=== PATIENT | female | born 1980 | race Caucasian/White ===

== ENCOUNTER 2019-07-01 17:29 | Emergency (ER) | payer MEDICARE ==
[~2019-07-01] VITALS: Ht 160 cm; Wt 97.5 kg
[~2019-07-01 17:29] MED LIST: ADIPEX-P37.5 M1; AUGMENTIN 875-1 EACH PO; DESYREL50 MG PO; DIFLUCAN150 MG PO; GABAPENTIN 100100 MG PO; HYDROCHLOROTHIA25 M1 PO; IBUPROFEN 800800 M1 PO; LIPITOR80 MG PO; LISINOPRIL20 MG PO; MULTIVITAMINS; NORCO 5-325 TA1 EACH PO; PERCOCET 5-3251 EACH PO; PRAVACHOL40 MG PO; PROTONIX40 M1; SYNTHROID175 MCG; TOPAMAX 25 MG T25 M1 PO; TUSSIONEX PENN473 ML PO; VALIUM5 MG PO; WELLBUTRIN XL300 M2 PO; XANAX 0.5 MG0.5 MG; ZETIA10 MG; ZOFRAN ODT4 MG PO
[2019-07-01] MEDS ORDERED: LIPITOR40 MG PO (17:55)
[2019-07-01 18:07] LABS: URINE BILIRUBIN NEGATIVE (Negative); URINE BLOOD TRACE (Negative); URINE CLARITY CLEAR; URINE COLOR STRAW; URINE GLUCOSE-RANDOM NEGATIVE (Negative); URINE KETONES NEGATIVE (Negative); URINE LEUKOCYTES-REFLEX 1+ (Negative); URINE NITRITE-REFLEX NEGATIVE (Negative); URINE PROTEIN NEGATIVE (Negative); URINE UROBILINOGEN 0.2 E.U./dl (0.2-1.0)
[2019-07-01 18:13] LABS: SQUAMOUS >10 Many /LPF (0-3)
[2019-07-01 18:14] LABS: URINE WBC-REFLEX 0-5 Rare /HPF (0-5)
[2019-07-01 18:15] LABS: CASTS None Seen /LPF (None Seen); CRYSTALS None Seen /LPF (None Seen); MUCUS None Seen strn/LPF (None Seen); URINE RBC 0-2 Rare /HPF (0-2)
[2019-07-01] MEDS ORDERED: DOXYCYCLINE MO100 M1 PO (18:36)
[2019-07-01 19:24] VITALS: BP 159/97
== END 2019-07-01 19:26 | disposition home or self-care (01) ==
LOC: M.ERS 17:29
PROVIDERS: Physician Assistant
DX: N72 Inflammatory disease of cervix uteri (principal); I10 Essential (primary) hypertension; F32.9 Major depressive disorder, single episode, unspecified; F41.9 Anxiety disorder, unspecified; F17.210 Nicotine dependence, cigarettes, uncomplicated; Z86.2 Personal history of diseases of the blood and blood-forming organs and certain disorders involving the immune mechanism; Z90.89 Acquired absence of other organs; Z98.890 Other specified postprocedural states

== ENCOUNTER 2020-02-05 18:54 | Emergency (ER) | payer MEDICARE ==
[~2020-02-05] VITALS: Ht 154.9 cm; Wt 111.1 kg
[~2020-02-05 18:54] MED LIST changes: +DOXYCYCLINE MO100 M1 PO; +LIPITOR40 MG PO
[2020-02-05] MEDS ORDERED: TOPROL XL50 MG PO (19:13)
[2020-02-05] MEDS ORDERED: CYTOMEL50 MCG PO (19:13)
[2020-02-05 19:29] LABS: INFLUENZA A ANTIGEN Negative (Negative); INFLUENZA B ANTIGEN Negative (Negative)
[2020-02-05 20:13] LABS: ABSOLUTE BASOPHILS 0.1 thou/uL (0.0-0.2); ABSOLUTE EOSINOPHILS 0.4 thou/uL (0.0-0.7); ABSOLUTE LYMPHOCYTES 2.3 thou/uL (0.8-5.3); ABSOLUTE MONOCYTES 0.5 thou/uL (0.0-1.2); ABSOLUTE NEUTROPHILS 5.7 thou/uL (1.6-8.1); BASOPHILS 1.4 %; EOSINOPHILS 4.3 %; HEMATOCRIT 41.5 % (37.0-47.0); LYMPHOCYTES 25.1 %; MCH 30.6 pg (26.0-34.0); MCHC 33.7 g/dL (28.0-37.0); MCV 90.8 fL (80.0-100.0); NUCLEATED RBCS 0 /100WBC; PLATELET COUNT* 307 thou/uL (150-400); POLYS 63.2 %; RBC 4.57 mil/uL (4.20-5.00); RDW-CV 13.8 % (10.5-14.5)
[2020-02-05 20:23] LABS: CALCIUM 9.4 mg/dL (8.5-10.1); CREATININE 0.9 mg/dL (0.6-1.3)
[2020-02-05 20:33] LABS: ALBUMIN 3.1 g/dL (3.4-5.0); TOTAL BILIRUBIN 0.1 mg/dL (<0.1-1.0); TOTAL PROTEIN 6.7 g/dL (6.4-8.2)
[2020-02-05] MEDS ORDERED: VIRTUSSIN AC L118 ML PO (22:04)
[2020-02-05] MEDS ORDERED: ZPAK PO (22:04)
[2020-02-05 22:23] VITALS: BP 141/86
--- NOTE | 2020-02-06 09:37 | EKG ---
[place] [address] ELECTROCARDIOGRAM REPORT Name: LUCINDA JONES Room: [facility]#: [id number] Admission: 02/05/20 Attend Phys: Discharge: 02/05/20 Date of : 76 Date of Service: 02/05/202006 Report #: [id number] THIS REPORT FOR: //name// [facility] ED Test Date: 2020-02-05 Test Time: 20:07:39 Pat Name: LUCINDA JONES Department: Room: Gender: F Package Sealer: : 1980 Requested By: Steff sEcobedo Order Number: [id number] MD: Darell Cox Measurements Intervals [place] Rate: 69 P: 50 AR: 159 QRS: 72 QRSD: 93 T: 22 QT: 386 QTc: 414 Interpretive Statements Sinus rhythm No previous ECG available for comparison Electronically Signed On 02-06-2020 9:35:48 CDT by Darell Cox [email or web address] <ELECTRONICALLY SIGNED> By: Darell Cox MD, [facility] 02/06/20 0935 06 06 Darell Cox MD, FACC /EPI
== END 2020-02-05 22:25 | disposition home or self-care (01) ==
LOC: M.ERS 18:54
PROVIDERS: Nurse Practitioner Family; Physician Assistant
DX: J22 Unspecified acute lower respiratory infection (principal); I10 Essential (primary) hypertension; F17.210 Nicotine dependence, cigarettes, uncomplicated; Z86.2 Personal history of diseases of the blood and blood-forming organs and certain disorders involving the immune mechanism

== ENCOUNTER 2020-03-30 12:32 | Emergency (ER) | payer MEDICARE ==
[~2020-03-30] VITALS: Ht 154.9 cm; Wt 109.8 kg
[~2020-03-30 12:32] MED LIST changes: +CYTOMEL50 MCG PO; +TOPROL XL50 MG PO; +VIRTUSSIN AC L118 ML PO; +ZPAK PO
[2020-03-30] MEDS ORDERED: NORCO 5-325 TA1 EAC1 PO (14:45)
[2020-03-30 15:30] VITALS: BP 158/64
== END 2020-03-30 15:30 | disposition home or self-care (01) ==
LOC: M.ERS 12:32
DX: M79.672 Pain in left foot (principal); I10 Essential (primary) hypertension; E89.0 Postprocedural hypothyroidism; F17.210 Nicotine dependence, cigarettes, uncomplicated; Z86.2 Personal history of diseases of the blood and blood-forming organs and certain disorders involving the immune mechanism

== ENCOUNTER 2020-12-19 14:29 | Emergency (ER) | payer MEDICARE ==
[~2020-12-19] VITALS: Ht 154.9 cm; Wt 109.8 kg
[~2020-12-19 14:29] MED LIST changes: +NORCO 5-325 TA1 EAC1 PO
[2020-12-19] MEDS ORDERED: TOPAMAX100 MG PO (14:43)
[2020-12-19] MEDS ORDERED: ZETIA10 MG PO (14:44)
[2020-12-19] MEDS ORDERED: [UNRECOGNIZED DRUG - OTHER] (14:44)
[2020-12-19] MEDS ORDERED: PROBIOTIC1 EAC7 PO (14:44)
[2020-12-19] MEDS ORDERED: DEPAKOTE125 MG PO (14:44)
[2020-12-19] MEDS ORDERED: ASA81BEC PO (14:45)
[2020-12-19 15:24] LABS: URINE BILIRUBIN NEGATIVE (Negative); URINE BLOOD TRACE (Negative); URINE CLARITY CLEAR; URINE COLOR YELLOW; URINE GLUCOSE-RANDOM NEGATIVE (Negative); URINE KETONES NEGATIVE (Negative); URINE LEUKOCYTES-REFLEX TRACE (Negative); URINE NITRITE-REFLEX NEGATIVE (Negative); URINE PROTEIN NEGATIVE (Negative); URINE SPECIFIC GRAVITY >= 1.030 (1.005-1.030); URINE UROBILINOGEN 0.2 E.U./dl (0.2-1.0)
[2020-12-19 15:34] LABS: BACTERIA-REFLEX 1-9 Few /HPF (None Seen); CASTS None Seen /LPF (None Seen); CRYSTALS None Seen /LPF (None Seen); MUCUS 0-3 Light strn/LPF (None Seen); SQUAMOUS >10 Many /LPF (0-3); URINE WBC-REFLEX 0-5 Rare /HPF (0-5)
[2020-12-19 15:35] LABS: URINE RBC None Seen /HPF (0-2)
[2020-12-19 15:37] LABS: HEMOGLOBIN 15.3 gm/dL (12.0-15.0)
[2020-12-19 15:38] LABS: CALCIUM 9.2 mg/dL (8.5-10.1); CREATININE 0.6 mg/dL (0.6-1.3); POTASSIUM 3.9 mmol/L (3.5-5.1)
[2020-12-19 15:39] LABS: HEMATOCRIT 45.5 % (37.0-47.0); MCH 30.7 pg (26.0-34.0); MCHC 33.6 g/dL (28.0-37.0); MCV 91.3 fL (80.0-100.0); MPV 9.3 fl. (7.2-11.1); NUCLEATED RBCS 0 /100WBC; RBC 4.98 mil/uL (4.20-5.00); RDW-CV 13.7 % (10.5-14.5); WBC 15.2 thou/uL (4.0-11.0)
[2020-12-19 15:49] LABS: ALBUMIN 3.5 g/dL (3.4-5.0); TOTAL BILIRUBIN 0.2 mg/dL (<0.1-1.0); TOTAL PROTEIN 7.3 g/dL (6.4-8.2)
--- NOTE | 2020-12-19 15:55 | EKG ---
[place] [address] ELECTROCARDIOGRAM REPORT Name: LUCINDA OJNES Room: [facility]#: [id number] Admission: 12/19/20 Attend Phys: Discharge: Date of : 76 Date of Service: 12/19/20 1516 Report #: [id number] THIS REPORT FOR: //name// [facility] ED Test Date: 2020-12-19 Test Time: 15:16:30 Pat Name: LUCINDA JONES Department: Room: Gender: F Show Host Or Hostess: [facility] : 1980 Requested By: Steff Escobedo Order Number: [id number] MD: Sarthak Mcrae Measurements Intervals [place] Rate: 68 P: 28 ID: 133 QRS: 72 QRSD: 88 T: 8 QT: 373 QTc: 397 Interpretive Statements Sinus rhythm Compared to ECG 02/05/2020 20:07:39 No significant changes Electronically Signed On 12-19-2020 15:55:05 SENIOR APPLICATIONS ANALYST by Sarthak Mcrae [email or web address] <ELECTRONICALLY SIGNED> By: Sarthak Mcrae MD, [facility] 12/19/20 1555 1516 151 Sarthak Mcrae MD, FAC /EPI
[2020-12-19 16:22] LABS: ABSOLUTE EOSINOPHILS 0.2 thou/uL (0.0-0.7); ABSOLUTE LYMPHOCYTES 3.2 thou/uL (0.8-5.3); ABSOLUTE MONOCYTES 0.8 thou/uL (0.0-1.2); ABSOLUTE NEUTROPHILS 11.1 thou/uL (1.6-8.1)
[2020-12-19 16:24] LABS: PLATELET ESTIMATE ADEQUATE
[2020-12-19] MEDS ORDERED: APAP W/CODEINE1 TA2 PO (16:30)
[2020-12-19 16:32] LABS: PLATELET COUNT* 290 thou/uL (150-400)
[2020-12-19 16:37] LABS: CLUMPED PLTS OCCASIONAL; LARGE PLATELETS OCCASIONAL
[2020-12-19 16:43] VITALS: BP 127/77
== END 2020-12-19 16:44 | disposition home or self-care (01) ==
LOC: M.ERS 14:29
PROVIDERS: Physician Assistant
DX: R53.83 Other fatigue (principal); Z20.822 Contact with and (suspected) exposure to COVID-19; I10 Essential (primary) hypertension; F17.210 Nicotine dependence, cigarettes, uncomplicated; Z79.899 Other long term (current) drug therapy; Z79.82 Long term (current) use of aspirin; Z98.890 Other specified postprocedural states

== ENCOUNTER 2021-02-10 22:36 | Emergency (ER) | payer MEDICARE ==
[~2021-02-10] VITALS: Ht 154.9 cm; Wt 110.7 kg
[~2021-02-10 22:36] MED LIST changes: +APAP W/CODEINE1 TA2 PO; +ASA81BEC PO; +DEPAKOTE125 MG PO; +PROBIOTIC1 EAC7 PO; +TOPAMAX100 MG PO; +ZETIA10 MG PO; +[UNRECOGNIZED DRUG - OTHER]
[2021-02-10] MEDS ORDERED: ALPRAZOLAM XR3 MG PO (22:48)
[2021-02-10] MEDS ORDERED: PHENTERMINE H37.5 M1 PO (22:48)
[2021-02-10 23:22] LABS: URINE BILIRUBIN NEGATIVE (Negative); URINE BLOOD TRACE (Negative); URINE CLARITY CLEAR; URINE COLOR YELLOW; URINE GLUCOSE-RANDOM NEGATIVE (Negative); URINE KETONES NEGATIVE (Negative); URINE LEUKOCYTES-REFLEX NEGATIVE (Negative); URINE NITRITE-REFLEX NEGATIVE (Negative); URINE PROTEIN NEGATIVE (Negative); URINE SPECIFIC GRAVITY >= 1.030 (1.005-1.030); URINE UROBILINOGEN 0.2 E.U./dl (0.2-1.0)
[2021-02-10 23:54] LABS: ABSOLUTE BASOPHILS 0.1 thou/uL (0.0-0.2); ABSOLUTE EOSINOPHILS 0.3 thou/uL (0.0-0.7); ABSOLUTE LYMPHOCYTES 2.5 thou/uL (0.8-5.3); ABSOLUTE NEUTROPHILS 6.3 thou/uL (1.6-8.1); BASOPHILS 1.2 %; EOSINOPHILS 2.8 %; HEMATOCRIT 40.5 % (37.0-47.0); HEMOGLOBIN 13.5 gm/dL (12.0-15.0); LYMPHOCYTES 24.7 %; MCH 30.8 pg (26.0-34.0); MCHC 33.4 g/dL (28.0-37.0); MCV 92.2 fL (80.0-100.0); MONOCYTES 9.8 %; MPV 8.3 fl. (7.2-11.1); NUCLEATED RBCS 0 /100WBC; PLATELET COUNT* 295 thou/uL (150-400); POLYS 61.5 %; WBC 10.2 thou/uL (4.0-11.0)
[2021-02-11 00:01] LABS: ALBUMIN 3.3 g/dL (3.4-5.0); CREATININE 0.7 mg/dL (0.6-1.3); POTASSIUM 3.6 mmol/L (3.5-5.1); TOTAL BILIRUBIN 0.3 mg/dL (<0.1-1.0); TOTAL PROTEIN 6.8 g/dL (6.4-8.2)
[2021-02-11 00:04] LABS: APTT 28.8 Seconds (25.0-31.3); PROTIME 10.3 Seconds (9.20-11.50)
[2021-02-11] MEDS ORDERED: KEFLEX500 M1 PO (00:22)
[2021-02-11 00:44] VITALS: BP 162/87
[2021-02-11 01:00] LABS: AMP/METHAMP Negative (Negative); BARBITURATES Negative (Negative); BENZODIAZEPINES POSITIVE (Negative); COCAINE Negative (Negative); METHADONE Negative (Negative); OPIATES Negative (Negative); PCP Negative (Negative); THC POSITIVE (Negative)
== END 2021-02-11 00:44 | disposition home or self-care (01) ==
LOC: M.ERS 22:36
PROVIDERS: Personal Emergency Response Attendant
DX: S60.221A Contusion of right hand, initial encounter (principal); S50.12XA Contusion of left forearm, initial encounter; S50.11XA Contusion of right forearm, initial encounter; S50.02XA Contusion of left elbow, initial encounter; S50.01XA Contusion of right elbow, initial encounter; S80.212A Abrasion, left knee, initial encounter; S80.211A Abrasion, right knee, initial encounter; S30.811A Abrasion of abdominal wall, initial encounter; I10 Essential (primary) hypertension; F17.210 Nicotine dependence, cigarettes, uncomplicated; Z79.899 Other long term (current) drug therapy; Z86.2 Personal history of diseases of the blood and blood-forming organs and certain disorders involving the immune mechanism; Y08.89XA Assault by other specified means, initial encounter; Y93.89 Activity, other specified; Y92.89 Other specified places as the place of occurrence of the external cause; Y99.8 Other external cause status

== ENCOUNTER 2021-07-19 16:54 | Emergency (ER) | payer MEDICARE ==
[~2021-07-19] VITALS: Ht 152.4 cm; Wt 108.9 kg
[~2021-07-19 16:54] MED LIST changes: +ALPRAZOLAM XR3 MG PO; +KEFLEX500 M1 PO; +PHENTERMINE H37.5 M1 PO
[2021-07-19] MEDS ORDERED: PROMETHAZI6.25 MG/5 PO (17:52)
[2021-07-19] MEDS ORDERED: APAP W/CODEINE1 TA2 PO (17:52)
[2021-07-19] MEDS ORDERED: TESSALON PERLE100 MG PO (17:52)
[2021-07-19 18:16] VITALS: BP 152/62
== END 2021-07-19 18:18 | disposition home or self-care (01) ==
LOC: M.ERS 16:54
DX: U07.1 COVID-19 (principal); I10 Essential (primary) hypertension; F32.9 Major depressive disorder, single episode, unspecified; F41.9 Anxiety disorder, unspecified; F17.210 Nicotine dependence, cigarettes, uncomplicated; Z90.89 Acquired absence of other organs; Z79.2 Long term (current) use of antibiotics; Z79.899 Other long term (current) drug therapy; Z79.82 Long term (current) use of aspirin